=== PATIENT | male | born 1950 | race Caucasian/White ===

== ENCOUNTER 2022-03-28 14:42 | Outpatient (CLI) | payer MEDICARE ==
[~2022-03-28 14:42] MED LIST: Magnevist 469MG/ML 20 ML VIAL ONE
== END 2022-03-28 14:43 | disposition home or self-care (01) ==
LOC: CSHRAD 14:42
PROVIDERS: ATTEND Ophthalmology Retina Specialist
DX: H47.10 Unspecified papilledema (principal)
CPT/HCPCS: 70543; 70545; 70553; A9579